=== PATIENT | female | born 1995 | race Native Hawaiian/Other Pacific Islander ===

== ENCOUNTER 2024-02-12 13:46 | Emergency (ER) | payer BC ==
[2024-02-12 13:58] VITALS: RESP 18; TEMP 98.2
--- NOTE | 2024-02-12 14:02 | ED ---
General Adult HPI - General Chief complaint: Extremity Injury, Upper Stated complaint: L shoulder pain down arm Time Seen by Provider: 02/12/24 13:58 Source: patient, RN notes reviewed Mode of arrival: ambulatory Limitations: no limitations - History of Present Illness Initial comments: This is a 28-year-old female with no significant past medical history presents emergency department complaint of left anterior shoulder pain and paresthesias of her left hand intermittently over the last week. Patient states that when the pain is present it is consistent and not aggravated by movement or position. She has noticed it is worse with running. today the pain has been constant rather than intermittent. She denies trauma or injury to the area. 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 Denies new exercise regimens or heavy lifting. Denies shortness of breath, chest pain or pressure, dizziness, lightheadedness, fatigue. Denies use of at home remedies for pain relief. - Related Data Allergies Allergy/AdvReac Type Severity Reaction Status Date / Time No Known Allergies Allergy Verified 02/12/24 13:54 Review of Systems ROS Statement: Those systems with pertinent positive or pertinent negative responses have been documented in the HPI. ROS Other: All systems not noted in ROS Statement are negative. Past Medical History Past Medical History: No Reported History History of Any Multi-Drug Resistant Organisms: None Reported Past Surgical History: No Surgical Hx Reported Past Psychological History: No Psychological Hx Reported Smoking Status: Never smoker Past Alcohol Use History: None Reported Past Drug Use History: None Reported General Exam Limitations: no limitations General appearance: alert, in no apparent distress Head exam: Present: atraumatic, normocephalic, normal inspection Eye exam: Present: normal appearance, PERRL, EOMI. Absent: scleral icterus, conjunctival injection, periorbital swelling ENT exam: Present: normal exam, mucous membranes moist Neck exam: Present: normal inspection. Absent: tenderness, meningismus, lymphadenopathy Respiratory exam: Present: normal lung sounds bilaterally. Absent: respiratory distress, wheezes, rales, rhonchi, stridor Cardiovascular Exam: Present: regular rate, normal rhythm, normal heart sounds. Absent: systolic murmur, diastolic murmur, rubs, gallop, clicks GI/Abdominal exam: Present: soft, normal bowel sounds. Absent: distended, tenderness, guarding, rebound, rigid Left Shoulder Exam: Present: normal inspection, full ROM, tenderness (anterior AC joint). Absent: swelling, abrasion, laceration, ecchymosis, deformity, crepitus Upper Arm exam: Present: normal inspection, full ROM Back exam: Present: normal inspection Neurological exam: Present: alert, oriented X3, CN II-XII intact Psychiatric exam: Present: normal affect, normal mood Skin exam: Present: warm, dry, intact, normal color. Absent: rash Course Vital Signs 02/12/24 02/12/24 13:52 16:07 Temperature 98.2 F Pulse Rate 98 83 Respiratory 18 18 Rate Blood Pressure 156/91 111/71 O2 Sat by Pulse 99 99 Oximetry Medical Decision Making - Medical Decision Making Was pt. sent in by a medical professional or institution (RONAL Sosa, MEDICAL OPERATIONS SUPERVISOR, urgent care, hospital, or group home...) When possible be specific @ -No Did you speak to anyone other than the patient for history (EMS, parent, family, police, friend...)? What history was obtained from this source @ -No Did you review nursing and triage notes (agree or disagree)? Why? @ -I reviewed and agree with nursing and triage notes Were old charts reviewed (outside hosp., previous admission, EMS record, old EKG, old radiological studies, urgent care reports/EKG's, group home records)? Report findings @ -No old charts were reviewed Differential Diagnosis (chest pain, altered mental status, abdominal pain women, abdominal pain men, vaginal bleeding, weakness, fever, dyspnea, syncope, hea dache, dizziness, GI bleed, back pain, seizure, CVA, palpatations, mental health, musculoskeletal)? @ -Differential Musculoskeletal Muscular strain, contusion, ligament sprain, fracture, arthritis, septic arthritis, bursitis, cellulitis, muscle spasm, nerve compression, DVT, arterial occlusion, herpes zoster, electrolyte abnormality, tumor.... This is not meant to be in all inclusive list EKG interpreted by me (3pts min.). @ -As above X-rays interpreted by me (1pt min.). @ -None done CT interpreted by me (1pt min.). @ -CT of the left shoulder reveals no evidence for fracture or degeneration U/S interpreted by me (1pt. min.). @ -None done What testing was considered but not performed or refused? (CT, X-rays, U/S, labs)? Why? @ -None What meds were considered but not given or refused? Why? @ -None Did you discuss the management of the patient with other professionals (professionals i.e. , PA, MEDICAL OPERATIONS SUPERVISOR, lab, RT, psych nurse, social science manager, ex assistant/program director, teacher, operations officer trust department, physician practice market manager)? Give summary @ -No Was smoking cessation discussed for >3mins.? @ -No Was critical care preformed (if so, how long)? @ -No Were there social determinants of health that impacted care today? How? (Homelessness, low income, unemployed, alcoholism, drug addiction, transportation, low edu. Level, literacy, decrease access to med. care, group home, rehab)? @ -No Was there de-escalation of care discussed even if they declined (Discuss DNR or withdrawal of care, Hospice)? DNR status @ -No What co-morbidities impacted this encounter? (DM, HTN, Smoking, COPD, CAD, Cancer, CVA, ARF, Chemo, Hep., AIDS, mental health diagnosis, sleep apnea, morbid obesity)? @ -None Was patient admitted / discharged? Hospital course, mention meds given and route, prescriptions, significant lab abnormalities, going to OR and other pertinent info. @ -Discharge. 28-year-old female with complaint of left shoulder pain over the last week. On examination patient's pain is not reproducible, she states that it is persistent and located on her anterior shoulder. Patient has full range of motion and is neurovascularly intact. Patient is complaining of paresthesias of her left distal fingers. Patient's 2+ utility driver strength. At this time CT was ordered with no acute findings. Recommend that patient uses lidocaine patch in addition to Biofreeze. Orthopedic referral provided if symptoms persist over the next 2 weeks. All questions answered at bedside. Return parameters discussed with the patient. Case discussed with Dr. Bowden. Undiagnosed new problem with uncertain prognosis? @ -No Drug Therapy requiring intensive monitoring for toxicity (Heparin, Nitro, Insulin, Cardizem)? @ -No Were any procedures done? @ -No Diagnosis/symptom? @ -left shoulder pain Acute, or Chronic, or Acute on Chronic? @ -acute Uncomplicated (without systemic symptoms) or Complicated (systemic symptoms)? @ -[uncomplicated Side effects of treatment? @ -No Exacerbation, Progression, or Severe Exacerbation? @ -No Poses a threat to life or bodily function? How? (Chest pain, [place], [place], pneumonia, PE, COPD, DKA, ARF, appy, cholecystitis, CVA, Diverticulitis, Homicidal, Suicidal, threat to staff... and all critical care pts) @ -No Disposition Clinical Impression: Shoulder pain, left Narrative: Please return to the Emergency Department if symptoms worsen or any other concerns. Disposition: HOME SELF-CARE Condition: Good Instructions (If sedation given, give patient instructions): Shoulder Sprain (ED), Shoulder Pain (ED) Is patient prescribed a controlled substance at d/c from ED?: No Referrals: Nonstaff,Physician [Primary Care Provider] - 1-2 days Armando Johnson DO [Doctor of Osteopathic Medicine] - 1-2 days Time of Disposition: 15:56
--- NOTE | 2024-02-12 15:43 | CT ---
EXAMINATION TYPE: CT shoulder LT wo con CT DLP: 366.8 mGycm, Automated exposure control for dose reduction was used. DATE OF EXAM: 02/12/2024 3:32 PM COMPARISON: . None CLINICAL INDICATION:Female, 28 years old with history of pain, paresthesias 1 week; PHH, LT arm pain, paresthesias x1 week. No injury TECHNIQUE: Axial images were obtained of the CT shoulder LT wo con, Additional coronal and sagittal r eformatted images and soft tissue and bone window were obtained for review. 3-D reconstruction was cr eated on a separate workstation. Contrast used: mL of , (None if empty) Oral contrast used: (None if empty) FINDINGS: There is no evidence of fracture, subluxation, or dislocation. No significant soft tissue swelling or joint effusion is identified. No focal muscular atrophy or edema is identified. No radiop aque foreign body identified. IMPRESSION: 1. No evidence of fracture. 2. No evidence for degeneration or acute process or pneumothorax.
[2024-02-12] MEDS: LIDOCAINE 4% PATCH TOPICAL ONE (15:59)
[2024-02-12 16:38] VITALS: BP 111/71; PULSE 83
== END 2024-02-12 16:08 | disposition home or self-care (01) ==
LOC: EC 13:46
DX: M25.512 Pain in left shoulder (principal)
CPT/HCPCS: 99283